=== PATIENT | male | born 1980 | race Caucasian/White ===

== ENCOUNTER 2020-05-09 11:20 | Emergency (ER) | payer OTHER ==
[2020-05-09 11:37] VITALS: RESP 18
[2020-05-09] MEDS ORDERED: ORPHENADRINE 30 MG/ML 2 ML VIAL IM STA (11:50)
[2020-05-09] MEDS ORDERED: KETOROLAC 15 MG/ML 1 ML VIAL IM STA (11:50)
--- NOTE | 2020-05-09 12:15 | XR ---
EXAMINATION TYPE: XR shoulder complete RT DATE OF EXAM: 05/09/2020 CLINICAL HISTORY: pain TECHNIQUE: Three views of the right shoulder are obtained. COMPARISON: None FINDINGS: There is no acute fracture/dislocation evident. The acromioclavicular and glenohumeral luis int spaces appear within normal limits. The visualized ribs are intact and unremarkable. IMPRESSION: 1. There is no acute fracture or dislocation. ICD 10 NO FRACTURE, INITIAL EVALUATION
--- NOTE | 2020-05-09 12:29 | ED ---
Upper Extremity HPI - General Chief Complaint: Extremity Injury, Upper Stated Complaint: shoulder & arm pain/finger numbness Time Seen by Provider: 05/09/20 11:41 Source: patient, RN notes reviewed, old records reviewed Mode of arrival: ambulatory Limitations: no limitations - History of Present Illness Initial Comments: 39-year-old male presents return today with complaints of right-sided shoulder strain. He reports symptoms started today when he woke up. He was golfing yesterday. He complains of paresthesias down the first second third digit. He reports that he feels a dull ache within the shoulder. He reports he does have good range of motion but does cause some increased pain within the shoulder joint and scapula. He denies any fevers or chills, chest pain or shortness of breath. He states he did take some Motrin without any significant relief prior to arrival. - Related Data Home Medications Medication Instructions Recorded Confirmed Atorvastatin Calcium [Lipitor] 10 mg PO HS 05/09/20 05/09/20 Ibuprofen [Motrin Ib] 600 mg PO ONCE PRN 05/09/20 05/09/20 Previous Rx's Medication Instructions Recorded Cyclobenzaprine [Flexeril] 10 mg PO HS #20 tab 05/09/20 dexAMETHasone [Dexamethasone] 0.75 mg PO DAILY #12 tab 05/09/20 Allergies Allergy/AdvReac Type Severity Reaction Status Date / Time No Known Allergies Allergy Verified 05/09/20 12:31 Review of Systems ROS Statement: Those systems with pertinent positive or pertinent negative responses have been documented in the HPI. ROS Other: All systems not noted in ROS Statement are negative. Past Medical History Past Medical History: No Reported History History of Any Multi-Drug Resistant Organisms: None Reported Additional Past Surgical History / Comment(s): neck cyst removed when 6 years old Past Psychological History: No Psychological Hx Reported Smoking Status: Never smoker Past Alcohol Use History: Occasional Past Drug Use History: None Reported General Exam - General Exam Comments Initial Comments: Shoulder x-ray shows no fracture dislocation. Limitations: no limitations General appearance: alert, in no apparent distress Head exam: Present: atraumatic, normocephalic, normal inspection Eye exam: Present: normal appearance, PERRL, EOMI. Absent: scleral icterus, conjunctival injection, periorbital swelling ENT exam: Present: normal exam, mucous membranes moist Neck exam: Present: normal inspection. Absent: tenderness, meningismus, lymphadenopathy Respiratory exam: Present: normal lung sounds bilaterally. Absent: respiratory distress, wheezes, rales, rhonchi, stridor Cardiovascular Exam: Present: regular rate, normal rhythm, normal heart sounds. Absent: systolic murmur, diastolic murmur, rubs, gallop, clicks GI/Abdominal exam: Present: soft Right Shoulder Exam: Present: normal inspection, full ROM, tenderness (Tenderness over R shoulder and supaspinatus. ) Upper Arm exam: Present: normal inspection, full ROM Elbow exam: Present: normal inspection, full ROM Forearm Wrist exam: Present: normal inspection, full ROM Hand Wrist exam: Present: normal inspection, full ROM Neuro motor exam: Present: wrist extension intact, thumb opposition intact, thumb IP flexion intact, thumb adduction intact, fingers 2-5 abduction intact Vascular: Present: normal capillary refill Back exam: Present: normal inspection Neurological exam: Present: alert, oriented X3, CN II-XII intact Psychiatric exam: Present: normal affect, normal mood Skin exam: Present: warm, dry, intact, normal color. Absent: rash Course Vital Signs 05/09/20 11:32 Temperature 98.1 F Pulse Rate 79 Respiratory 18 Rate Blood Pressure 153/88 O2 Sat by Pulse 99 Oximetry Medical Decision Making - Medical Decision Making 39-year-old male presents returns today with right shoulder pain paresthesias on the first second and third digit. Symptoms will reportedly when he woke up this morning but was doing golfing yesterday. This time he has normal sensation and full range of motion of the hand and wrist and shoulder. Assessment tenderness over the supraspinatus muscle. Patient was given IM Toradol and Norflex. Discussed treatment anti-inflammatory medications steroids. Discussed close follow-up with primary care physician and possible orthopedic. Patient x-ray shows no evidence of acute fracture dislocation of the shoulder. Patient is agreeable treatment plan will comply. - Radiology Data Radiology results: report reviewed Shoulder x-rays be negative for any acute process. Disposition Clinical Impression: Shoulder strain, Paresthesia and pain of right extremity Disposition: HOME SELF-CARE Condition: Good Instructions (If sedation given, give patient instructions): Paresthesia (ED), Rotator Cuff Injury (ED) Additional Instructions: Please use medication as discussed. Please follow up with family doctor if symptoms have not improved over the next two days. Please return to the emergency room if your symptoms increase or worsen or for any other concerns. Prescriptions: dexAMETHasone [Dexamethasone] 0.75 mg PO DAILY #12 tab Cyclobenzaprine [Flexeril] 10 mg PO HS #20 tab Is patient prescribed a controlled substance at d/c from ED?: No Referrals: Moses Thompson DO [Primary Care Provider] - 1-2 days Marvin Austin MD [STAFF PHYSICIAN] - 1-2 days Time of Disposition: 12:36
[2020-05-09] MEDS ORDERED: ACET/COD 300 MG/30 MG STARTER PACK 6 TAB BTL PO STA (12:38)
[2020-05-09 13:05] VITALS: BP 128/84; PULSE 68; TEMP 98.4
== END 2020-05-09 13:04 | disposition home or self-care (01) ==
LOC: EC 11:20
DX: S46.911A Strain of unspecified muscle, fascia and tendon at shoulder and upper arm level, right arm, initial encounter (principal); R20.2 Paresthesia of skin; X50.3XXA Overexertion from repetitive movements, initial encounter; Y93.53 Activity, golf
CPT/HCPCS: 73030; 99284; 96372 ×2; J2360; J1885

== ENCOUNTER 2021-12-05 08:19 | Inpatient (IN) | payer OTHER, BC ==
[2021-12-05 09:01] LABS: ALT 30 U/L (4-49); AST 28 U/L (17-59); African American GFR (CKD) >90 (>60 ml/min/1.73 sqM); Alkaline Phosphatase 112 U/L (38-126); Anion Gap 8 mmol/L; Blood Urea Nitrogen 14 mg/dL (9-20); Calcium 8.9 mg/dL (8.4-10.2); Carbon Dioxide 21 mmol/L (22-30); Chloride 109 mmol/L (98-107); Glucose 98 mg/dL (74-99); Magnesium 1.9 mg/dL (1.6-2.3); Non-African American GFR(CKD) >90 (>60 ml/min/1.73 sqM); Potassium 4.2 mmol/L (3.5-5.1); Sodium 138 mmol/L (137-145); Total Bilirubin 0.6 mg/dL (0.2-1.3); Total Protein 7.6 g/dL (6.3-8.2)
--- NOTE | 2021-12-05 09:03 | ED ---
General Adult HPI - General Chief complaint: Shortness of Breath Stated complaint: SOB Time Seen by Provider: 12/05/21 08:29 Source: patient Mode of arrival: ambulatory Limitations: no limitations - History of Present Illness Initial comments: 41-year-old male presents emergency Department with reported shortness of breath. States that it's been going on progressively since September. He describes it as an exertional dyspnea. Cannot go up a flight of stairs without stopping to catch his breath and cough. States the cough is minimally productive with only clear sputum. He has been seen by his primary care doctor. In September they placed him on an antibiotic as he was having high white blood cell counts. He reportedly got a chest x-ray. 3 weeks ago he was sent down to the [facility] in [place] have an echo. Recently just got his results and they were normal. He denies previous history of cardiac disease. No peripheral edema. Denies calf pain. No recent travel or surgeries. 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 Denies family history of DVT or PE. No history of asthma or COPD. Patient is a nonsmoker. He denies associated chest pain. He did injure his right arm playing golf and had a large hematoma however he states he was never evaluated for it. He denies any abdominal pain. No fevers. No other alleviating, precipitating or modifying factors - Related Data Home Medications Medication Instructions Recorded Confirmed Atorvastatin Calcium [Lipitor] 10 mg PO HS 05/09/20 12/05/21 Allergies Allergy/AdvReac Type Severity Reaction Status Date / Time No Known Allergies Allergy Verified 12/05/21 10:24 Review of Systems ROS Statement: Those systems with pertinent positive or pertinent negative responses have been documented in the HPI. ROS Other: All systems not noted in ROS Statement are negative. Past Medical History Past Medical History: No Reported History History of Any Multi-Drug Resistant Organisms: None Reported Additional Past Surgical History / Comment(s): neck cyst removed when 6 years old Past Psychological History: No Psychological Hx Reported Smoking Status: Never smoker Past Alcohol Use History: Occasional Past Drug Use History: None Reported - Past Family History Father Family Medical History: COPD, Diabetes Mellitus, Hyperlipidemia, Hypertension Additional Family Medical History / Comment(s): Neuropathy, depression. Mother Family Medical History: COPD, Thyroid Disorder Additional Family Medical History / Comment(s): Mother is a smoker. General Exam Limitations: no limitations Course Vital Signs 12/05/21 12/05/21 12/05/21 08:21 09:30 12:02 Temperature 98.2 F Pulse Rate 94 92 75 Respiratory 26 H 20 Rate Blood Pressure 160/86 140/96 O2 Sat by Pulse 94 L 90 L Oximetry 12/05/21 15:00 Temperature Pulse Rate 84 Respiratory 16 Rate Blood Pressure 129/87 O2 Sat by Pulse 91 L Oximetry EKG Findings - EKG Comments: EKG Findings:: EKG demonstrates a sinus rhythm with a rate of 92. NE interval 164. QRS 98. QTC of 384. No acute ST segment elevations or depressions. There is baseline artifact. Medical Decision Making - Medical Decision Making Upon arrival patient is placed into room 8. A thorough history and physical exam is performed. Patient does have oxygen saturation of 86% upon arrival and therefore placed on 4 L of oxygen. IV is established laboratory studies are conducted. Patient is sent over for a CT of his chest which demonstrates significant groundglass opacities. No pneumothorax, no PE. Recommended admission for pulmonology consultation. Gave the patient dose of steroids and a breathing treatment. Spoke with Dr. bryant who agreed to admit the patient - Lab Data Result diagrams: 12/05/21 08:42 12/05/21 08:42 Lab Results 12/05/21 12/05/21 12/05/21 Range/Units 08:42 08:42 08:42 WBC 9.8 (3.8-10.6) k/uL RBC 5.73 (4.30-5.90) m/uL Hgb 17.7 H (13.0-17.5) gm/dL Hct 50.1 (39.0-53.0) % MCV 87.4 (80.0-100.0) fL MCH 30.9 (25.0-35.0) pg MCHC 35.3 (31.0-37.0) g/dL RDW 13.3 (11.5-15.5) % Plt Count 155 (150-450) k/uL MPV 10.1 Neutrophils % 72 % Lymphocytes % 16 % Monocytes % 6 % Eosinophils % 4 % Basophils % 1 % Neutrophils # 7.1 (1.3-7.7) k/uL Lymphocytes # 1.6 (1.0-4.8) k/uL Monocytes # 0.6 (0-1.0) k/uL Eosinophils # 0.4 (0-0.7) k/uL Basophils # 0.1 (0-0.2) k/uL PT 10.7 (9.0-12.0) sec INR 1.0 (<1.2) APTT 22.8 (22.0-30.0) sec D-Dimer <0.17 (<0.60) mg/L FEU Sodium 138 (137-145) mmol/L Potassium 4.2 (3.5-5.1) mmol/L Chloride 109 H (98-107) mmol/L Carbon Dioxide 21 L (22-30) mmol/L Anion Gap 8 mmol/L BUN 14 (9-20) mg/dL Creatinine 0.90 (0.66-1.25) mg/dL Est GFR (CKD-EPI)AfAm >90 (>60 ml/min/1.73 sqM) Est GFR (CKD-EPI)NonAf >90 (>60 ml/min/1.73 sqM) Glucose 98 (74-99) mg/dL Plasma Lactic Acid Tong (0.7-2.0) mmol/L Calcium 8.9 (8.4-10.2) mg/dL Magnesium 1.9 (1.6-2.3) mg/dL Total Bilirubin 0.6 (0.2-1.3) mg/dL AST 28 (17-59) U/L ALT 30 (4-49) U/L Alkaline Phosphatase 112 (38-126) U/L Troponin I (0.000-0.034) ng/mL NT-Pro-B Natriuret Pep pg/mL Total Protein 7.6 (6.3-8.2) g/dL Albumin 4.0 (3.5-5.0) g/dL Coronavirus (PCR) (Not Detectd) Influenza Type A RNA (Not Detectd) Influenza Type B (PCR) (Not Detectd) 12/05/21 12/05/21 12/05/21 Range/Units 08:42 08:42 08:43 WBC (3.8-10.6) k/uL RBC (4.30-5.90) m/uL Hgb (13.0-17.5) gm/dL Hct (39.0-53.0) % MCV (80.0-100.0) fL MCH (25.0-35.0) pg MCHC (31.0-37.0) g/dL RDW (11.5-15.5) % Plt Count (150-450) k/uL MPV Neutrophils % % Lymphocytes % % Monocytes % % Eosinophils % % Basophils % % Neutrophils # (1.3-7.7) k/uL Lymphocytes # (1.0-4.8) k/uL Monocytes # (0-1.0) k/uL Eosinophils # (0-0.7) k/uL Basophils # (0-0.2) k/uL PT (9.0-12.0) sec INR (<1.2) APTT (22.0-30.0) sec D-Dimer (<0.60) mg/L FEU Sodium (137-145) mmol/L Potassium (3.5-5.1) mmol/L Chloride (98-107) mmol/L Carbon Dioxide (22-30) mmol/L Anion Gap mmol/L BUN (9-20) mg/dL Creatinine (0.66-1.25) mg/dL Est GFR (CKD-EPI)AfAm (>60 ml/min/1.73 sqM) Est GFR (CKD-EPI)NonAf (>60 ml/min/1.73 sqM) Glucose (74-99) mg/dL Plasma Lactic Acid Tong 1.2 (0.7-2.0) mmol/L Calcium (8.4-10.2) mg/dL Magnesium (1.6-2.3) mg/dL Total Bilirubin (0.2-1.3) mg/dL AST (17-59) U/L ALT (4-49) U/L Alkaline Phosphatase (38-126) U/L Troponin I <0.012 (0.000-0.034) ng/mL NT-Pro-B Natriuret Pep 37 pg/mL Total Protein (6.3-8.2) g/dL Albumin (3.5-5.0) g/dL Coronavirus (PCR) (Not Detectd) Influenza Type A RNA (Not Detectd) Influenza Type B (PCR) (Not Detectd) 12/05/21 12/05/21 Range/Units 08:43 08:43 WBC (3.8-10.6) k/uL RBC (4.30-5.90) m/uL Hgb (13.0-17.5) gm/dL Hct (39.0-53.0) % MCV (80.0-100.0) fL MCH (25.0-35.0) pg MCHC (31.0-37.0) g/dL RDW (11.5-15.5) % Plt Count (150-450) k/uL MPV Neutrophils % % Lymphocytes % % Monocytes % % Eosinophils % % Basophils % % Neutrophils # (1.3-7.7) k/uL Lymphocytes # (1.0-4.8) k/uL Monocytes # (0-1.0) k/uL Eosinophils # (0-0.7) k/uL Basophils # (0-0.2) k/uL PT (9.0-12.0) sec INR (<1.2) APTT (22.0-30.0) sec D-Dimer (<0.60) mg/L FEU Sodium (137-145) mmol/L Potassium (3.5-5.1) mmol/L Chloride (98-107) mmol/L Carbon Dioxide (22-30) mmol/L Anion Gap mmol/L BUN (9-20) mg/dL Creatinine (0.66-1.25) mg/dL Est GFR (CKD-EPI)AfAm (>60 ml/min/1.73 sqM) Est GFR (CKD-EPI)NonAf (>60 ml/min/1.73 sqM) Glucose (74-99) mg/dL Plasma Lactic Acid Tong (0.7-2.0) mmol/L Calcium (8.4-10.2) mg/dL Magnesium (1.6-2.3) mg/dL Total Bilirubin (0.2-1.3) mg/dL AST (17-59) U/L ALT (4-49) U/L Alkaline Phosphatase (38-126) U/L Troponin I (0.000-0.034) ng/mL NT-Pro-B Natriuret Pep pg/mL Total Protein (6.3-8.2) g/dL Albumin (3.5-5.0) g/dL Coronavirus (PCR) Not Detected (Not Detectd) Influenza Type A RNA Not Detected (Not Detectd) Influenza Type B (PCR) Not Detected (Not Detectd) Disposition Clinical Impression: Hypoxia, Acute respiratory failure Disposition: ADMITTED IP TO THIS HOSP Condition: Stable Is patient prescribed a controlled substance at d/c from ED?: No Decision to Admit Reason: Admit from EC Decision Date: 12/05/21 Decision Time: 11:36
[2021-12-05 09:14] LABS: Partial Thromboplastin Time 22.8 sec (22.0-30.0); Prothrombin Time 10.7 sec (9.0-12.0)
[2021-12-05 09:26] LABS: Basophils # (A) 0.1 k/uL (0-0.2); Basophils % (A) 1 %; Eosinophils # (A) 0.4 k/uL (0-0.7); Eosinophils % (A) 4 %; HCT 50.1 % (39.0-53.0); HGB 17.7 gm/dL (13.0-17.5); Lymphocytes # (A) 1.6 k/uL (1.0-4.8); Lymphocytes % (A) 16 %; MCH 30.9 pg (25.0-35.0); MCHC 35.3 g/dL (31.0-37.0); MCV 87.4 fL (80.0-100.0); Mean Platelet Volume 10.1; Monocytes # (A) 0.6 k/uL (0-1.0); Monocytes % (A) 6 %; Neutrophils # (A) 7.1 k/uL (1.3-7.7); Neutrophils % (A) 72 %; Platelet Count 155 k/uL (150-450); RBC 5.73 m/uL (4.30-5.90); RDW 13.3 % (11.5-15.5); WBC 9.8 k/uL (3.8-10.6)
--- NOTE | 2021-12-05 10:15 | CT ---
EXAMINATION TYPE: CT chest angio for PE DATE OF EXAM: 12/05/2021 COMPARISON: NONE HISTORY: Shortness of breath CT DLP: 1038.3 mGy.cm. Automated Exposure Control for Dose Reduction was Utilized. TECHNIQUE AND CONTRAST: CTA scan of the thorax is performed with IV Contrast, patient injected with 100 mL of Isovue 370, pul [facility] angiogram protocol. MIP Images are created on an independent workstation and reviewed. FINDINGS: Suboptimal enhancement of the pulmonary arteries. No definite filling defect within the pulmonary jennifer nk, main pulmonary arteries, lobar and segmental branches to suggest pulmonary embolism. Subsegmental branches are suboptimally assessed. The pulmonary trunk measures 2.9 cm. No gross cardiomegaly. No p ericardial effusion. Scattered subcentimeter bilateral hilar and mediastinal lymph nodes. No greater than 1 cm lymph node in the chest. Extensive bilateral groundglass opacities with mosaic perfusion pattern, relatively sparing the lung bases. 7 mm nodule is seen in the right lower lobe superior segment with a tiny calcified granuloma i n the left lower lobe. Recommend follow-up CT scan in 3 months for reassessment. Patent central airwa ys. No pleural effusion. Grossly unremarkable upper abdomen. No gross aggressive bone lesion. IMPRESSION: Suboptimal CT scan as described above. No major or central pulmonary embolism. Small peripheral pulmo nary embolism can't be excluded. Extensive bilateral groundglass opacities with mosaic perfusion pattern as described above, nonspecif ic and could be related to chronic small airway disease or chronic thromboembolic pulmonary hypertens ion. Other lung disease like hypersensitivity pneumonitis cannot be excluded. Recommend clinical brandee elation and further workup. Further pulmonology consultation can be considered. Other findings as ludwig cribed above.
[2021-12-05] MEDS ORDERED: IPRATROPIUM-ALBUTEROL 3 ML NEB INHALATION STA (11:21)
[2021-12-05] MEDS ORDERED: methylPREDNISolone SOD SUCCI 125 MG/2 ML VIAL IV STA (11:21)
[2021-12-05] MEDS ORDERED: NALOXONE 0.4 MG/ML 1 ML VIAL IV PRN (11:36)
--- NOTE | 2021-12-05 11:51 | P.HPIM ---
History of Present Illness This is a pleasant 41 years old male with past medical history of hyperlipidemia and obesity. Presents with ongoing dyspnea since end of last August for the last 3-4 months, mainly with exertion like when he is going upstairs associated with some cough and clear phlegm which is worse over the last month and hypoxia with saturation of oxygen was 86% on room air on admission, currently 94% on 4 L oxygen. [facility] and they ordered some tests for him which came back basically negative as per patient and he was scheduled for pulmonary function test but he decided to come to emergency room. Past chest pain or abdominal pain or vomiting. No urinary complaints, no headache, dizziness or weakness or numbness. He denies smoking or illicit drugs. He drinks alcohol socially. He is mildly tachypneic 20-22 breaths per minute. Labs including CBC, BMP and liver enzymes were unremarkable. Hemoglobin is el evated at 17.7 D-dimer is negative less than 0.17. Troponin is negative less than 0.012. Coronavirus and influenza virus is negative and not detected. CTA of the chest with contrast: No pulmonary embolism, no lymphadenopathy. But has extensive bilateral groundglass opacities with hormone psych perfusion pattern with right lower lobe 7 mm lung nodules with recommendation for follow- up computed tomography scan in 3 months Review of Systems CONSTITUTIONAL: No fever, no malaise, no fatigue. HEENT: No recent visual problems or hearing problems. Denied any sore throat. CARDIOVASCULAR: No orthopnea, PND, no palpitations, no syncope. PULMONARY: No chest wall tenderness, no cough, no hemoptysis. GASTROINTESTINAL: No diarrhea, no nausea, no vomiting, no abdominal pain. Normoactive bowel sounds. NEUROLOGICAL: No headaches, no weakness, no numbness. HEMATOLOGICAL: Denies any bleeding or petechiae. GENITOURINARY: Denies any burning micturition, frequency, or urgency. MUSCULOSKELETAL/RHEUMATOLOGICAL: Denies any joint pain, swelling, or any muscle pain. ENDOCRINE: Denies any polyuria or polydipsia. Past Medical History Past Medical History: No Reported History History of Any Multi-Drug Resistant Organisms: None Reported Additional Past Surgical History / Comment(s): neck cyst removed when 6 years old Past Psychological History: No Psychological Hx Reported Smoking Status: Never smoker Past Alcohol Use History: Occasional Past Drug Use History: None Reported Medications and Allergies Home Medications Medication Instructions Recorded Confirmed Type Atorvastatin Calcium [Lipitor] 10 mg PO HS 05/09/20 12/05/21 History Allergies Allergy/AdvReac Type Severity Reaction Status Date / Time No Known Allergies Allergy Verified 12/05/21 10:24 Physical Exam Vitals: Vital Signs Temp Pulse Resp BP Pulse Ox 12/05/21 09:30 92 20 140/96 90 L 12/05/21 08:21 98.2 F 94 26 H 160/86 94 L Intake and Output 12/04/21 12/05/21 12/05/21 22:59 06:59 14:59 Other: Weight 134.717 kg - GENERAL: The patient is alert and oriented x3, not in any acute distress. Obese HEENT: Pupils are round and equally reacting to light. EOMI. No scleral icterus. No conjunctival pallor. Normocephalic, atraumatic. No pharyngeal erythema. No thyromegaly. CARDIOVASCULAR: S1 and S2 present. No murmurs, rubs, or gallops. PULMONARY: Chest is clear to auscultation, no wheezing or crackles. ABDOMEN: Soft, nontender, nondistended, normoactive bowel sounds. No palpable organomegaly. MUSCULOSKELETAL: No joint swelling or deformity. EXTREMITIES: No cyanosis, clubbing, or pedal edema. NEUROLOGICAL: Gross neurological examination did not reveal any focal deficits. SKIN: No rashes. No petechiae Results CBC & Chem 7: 12/05/21 08:42 12/05/21 08:42 Labs: Abnormal Lab Results - Last 24 Hours (Table) 12/05/21 12/05/21 Range/Units 08:42 08:42 Hgb 17.7 H (13.0-17.5) gm/dL Chloride 109 H (98-107) mmol/L Carbon Dioxide 21 L (22-30) mmol/L Assessment and Plan Assessment: Worsening dyspnea with acute hypoxia over the last 3-4 months, Secondary erythrocytosis, mostly due to his ongoing hypoxia right lower lobe 7 mm lung nodules Hyperlipidemia Obesity with BMI of 37.1 Plan: A pleasant 39 years old male who presents with bilateral groundglass opacities with hypoxia Continue with oxygen therapy Pulmonary consult we will order a TSH, proBNP and procalcitonin Patent recommended to repeat CAT scan of the chest in 3 months for his lung nodule Labs and medication were reviewed.. Continue same treatment. Continue with symptomatic treatment. Resume home medication. Monitor lytes and vitals. DVT and GI prophylaxis. Further recommendations depends on the clinical course of the patient DVT prophylaxis: Subcutaneous heparin GI Prophylaxis: Pepcid
--- NOTE | 2021-12-05 16:09 | P.CNPUL ---
History of Present Illness Consult date: 12/05/21 Requesting physician: Ankur Wan Reason for consult: dyspnea, pneumonia Chief complaint: Shortness of breath on exertion History of present illness: This is a 41-year-old white male with no previous significant past medical history. No previous history of asthma, no previous history of COPD, no previous history of pneumonia, no previous cardiac history, patient is known to have obesity and dyslipidemia. Since April of last year until now, patient had recurrent episodes of cough, shortness of breath, and on few occasions he was treated with antibiotics and steroids. Since September till now, patient has been complaining of dyspnea on exertion and associated with cough, cough is prod uctive with clear phlegm. No fever no chills no hemoptysis no chest pain. Upon arrival to the ER, his O2 saturation on room air was 86%. His O2 saturation came up to 94% on [address] of the chest was done to rule out pulmonary embolism, however it showed diffuse groundglass opacities. Has a mosaicperfusion pattern, and there was no evidence of thromboembolic disease. There was also evidence of 7 mm nodule in the right lower lobe superior segment, noncalcified. Again there was no evidence of pulmonary embolism. Considering the patient's O2 saturation, patient was admitted and this consult was initiated. I reviewed the CT angiogram of the chest, and I have recommended workup for hypersensitivity pneumonitis, and I have recommended sed rate, and angiotensin-converting enzyme level, I also recommended CAM And p-ANCA as well as a hypersensitivity panel. In the meantime patient will be treated with Solu-Medrol, and have a repeat chest x-ray in the next couple of days or even consider repeat CT of the chest and decide whether the patient will need bronchoscopy and transbronchial biopsy. Review of Systems CONSTITUTIONAL: No fever, no malaise, no fatigue. No weight loss. HEENT: Negative. CARDIOVASCULAR: Negative. PULMONARY: As noted in HPI mostly shortness of breath on exertion, and occasional cough. Associated with exertion. GASTROINTESTINAL: Negative. Denies any symptoms of nausea vomiting or GERD. NEUROLOGICAL: Negative. HEMATOLOGICAL: Negative. GENITOURINARY: Negative.. MUSCULOSKELETAL/RHEUMATOLOGICAL: Negative. ENDOCRINE: Negative. Past Medical History Past Medical History: Hyperlipidemia, Osteoarthritis (OA) Additional Past Medical History / Comment(s): Cervical pinched nerve which has caused r index finger numbness, bronchitis often as a child only, arthritis bilateral knees. History of Any Multi-Drug Resistant Organisms: None Reported Additional Past Surgical History / Comment(s): neck cyst removed when 6 years old Past Anesthesia/Blood Transfusion Reactions: No Reported Reaction Smoking Status: Never smoker - Past Family History Father Family Medical History: COPD, Diabetes Mellitus, Hyperlipidemia, Hypertension Additional Family Medical History / Comment(s): Neuropathy, depression. Mother Family Medical History: COPD, Thyroid Disorder Additional Family Medical History / Comment(s): Mother is a smoker. Medications and Allergies Home Medications Medication Instructions Recorded Confirmed Type Atorvastatin Calcium [Lipitor] 10 mg PO HS 05/09/20 12/05/21 History Allergies Allergy/AdvReac Type Severity Reaction Status Date / Time No Known Allergies Allergy Verified 12/05/21 10:24 Physical Exam Vitals: Vital Signs Temp Pulse Resp BP Pulse Ox 12/05/21 15:00 84 16 129/87 91 L 12/05/21 12:02 75 12/05/21 09:30 92 20 140/96 90 L 12/05/21 08:21 98.2 F 94 26 H 160/86 94 L Intake and Output 12/05/21 12/05/21 12/05/21 06:59 14:59 22:59 Other: Weight 134.717 kg 134.717 kg Physical Exam: Revealed 41-year-old white male pleasant, in no distress. Presently on 4 L nasal cannula. Head: Atraumatic, normocephalic. HEENT:[Neck is supple.] [No neck masses.] [No thyromegaly.] [No JVD.] Chest: [Clear throughout, no crackles, no rhonchi, no wheezes.] Symmetrical chest expansion. Cardiac Exam: [Normal S1 and S2, no S3 gallop, no murmur.] Abdomen: [Soft, nontender, no megaly, no rebound, no guarding, normal bowel sounds.] Extremities: [No clubbing, no edema, no cyanosis.] Neurological Exam: [No focal neurologic deficit.] Alert oriented 3. Psychiatric: Normal mood, affect and normal mental status examination. Skin: No rashes. Results - Laboratory Findings CBC and BMP: 12/05/21 08:42 12/05/21 08:42 PT/INR, D-dimer PT 10.7 sec (9.0-12.0) 12/05/21 08:42 INR 1.0 (<1.2) 12/05/21 08:42 D-Dimer <0.17 mg/L FEU (<0.60) 12/05/21 08:42 Abnormal lab findings: Abnormal Labs 12/05/21 12/05/21 08:42 08:42 Hgb 17.7 H Chloride 109 H Carbon Dioxide 21 L - Diagnostic Findings Chest x-ray: image reviewed CT scan - chest: image reviewed (As noted in HPI) Assessment and Plan Assessment: Impression: Diffuse pneumonitis, not appreciated on the chest x-ray as much as appreciated on the CT of the chest. Possible hypersensitivity pneumonitis Discharge on exertion secondary to above. Morbid obesity with BMI of 37.1 Right lower lobe nodule will need further follow-up and repeat CT of the chest in 6 months on outpatient basis. Recommendation: Continue present meds including methylprednisolone Continue updrafts Continue oxygen and titrate accordingly Diagnostic workup including hypersensitivity panel, sed rate, angiotensin-c onverting enzyme level, REBA, c-ANCA, and p-ANCA were ordered. If no improvement in the next few days and no specific diagnostic findings from the above, will definitely consider bronchoscopy and transbronchial biopsy on this patient. We'll continue to follow Time with Patient: Greater than 30
[2021-12-05] MEDS: methylPREDNISolone SOD SUCCI 125 MG/2 ML VIAL IV SCH (17:38)
[2021-12-05] MEDS ORDERED: ACETAMINOPHEN TAB 325 MG TAB PO PRN (17:45)
[2021-12-05] MEDS ORDERED: ONDANSETRON 4 MG/2 ML VIAL IVP PRN (17:45)
[2021-12-05 20:12] LABS: Glucose,Whole Blood 104 mg/dL (75-99)
[2021-12-05] MEDS: IPRATROPIUM-ALBUTEROL 3 ML NEB INHALATION SCH (20:28)
[2021-12-05] MEDS: FAMOTIDINE 20 MG/2 ML VIAL IV SCH (21:05)
[2021-12-05] MEDS: ATORVASTATIN 10 MG TAB PO SCH (21:05)
[2021-12-05] MEDS: HEPARIN SODIUM,PORCINE/PF 5,000 UNIT/0.5 ML SYRINGE SQ SCH (21:05)
--- NOTE | 2021-12-05 22:15 | XR ---
EXAMINATION TYPE: XR chest 1V portable DATE OF EXAM: 12/05/2021 CLINICAL HISTORY: Difficulty breathing progress study. TECHNIQUE: AP portable COMPARISON: Chest x-ray from one day earlier FINDINGS: Lungs are clear. Pleural spaces are negative. Cardiomediastinal silhouette is unremarkable . No acute bone or soft tissue findings. IMPRESSION: No acute radiographic process.
[2021-12-06] MEDS: methylPREDNISolone SOD SUCCI 125 MG/2 ML VIAL IV SCH ×5 (00:26→23:52)
[2021-12-06 06:56] LABS: Glucose,Whole Blood 143 mg/dL (75-99)
[2021-12-06] MEDS: IPRATROPIUM-ALBUTEROL 3 ML NEB INHALATION SCH ×4 (07:55→19:47)
[2021-12-06 09:04] LABS: Basophils # (A) 0.01 X 10*3/uL (0.00-0.10); Basophils % (A) 0.1 %; Eosinophils # (A) 0 X 10*3/uL (0.04-0.35); Eosinophils % (A) 0 %; HGB 17.6 g/dL (13.0-17.0); Immature Grans, Automated 0.4 %; Lymphocytes # (A) 0.75 X 10*3/uL (0.90-5.00); Lymphocytes % (A) 7.3 %; MCH 29.3 pg (27.0-32.0); MCHC 33.8 g/dL (32.0-37.0); MCV 86.5 fL (80.0-97.0); Mean Platelet Volume 12.7 fL (9.5-12.2); Monocytes # (A) 0.08 X 10*3/uL (0.20-1.00); Monocytes % (A) 0.8 %; NRBC Per 100 WBC 0 /100 WBCS (0.0-0.0); Neutrophils # (A) 9.37 X 10*3/uL (1.80-7.70); Neutrophils % (A) 91.4 %; Platelet Count 185 X 10*3/uL (140-440); RBC 6.01 X 10*6/uL (4.40-5.60); RDW 12.9 % (11.5-14.5); WBC 10.25 X 10*3/uL (4.50-10.00)
[2021-12-06 09:14] LABS: African American GFR (CKD) 113.5 (60.0-200.0); BUN/Creat Ratio 17.21 Ratio (12.00-20.00); Blood Urea Nitrogen 16.4 mg/dL (9.0-27.0); Carbon Dioxide 20.5 mmol/L (20.0-27.5); Potassium 4.8 mmol/L (3.5-5.5)
--- NOTE | 2021-12-06 09:15 | P.PN ---
Subjective Progress Note Date: 12/06/21 Principal diagnosis: Pneumonitis/alveolitis of unclear etiology This is a 41-year-old white male with no previous significant past medical history. No previous history of asthma, no previous history of COPD, no previous history of pneumonia, no previous cardiac history, patient is known to have obesity and dyslipidemia. Since April of last year until now, patient had recurrent episodes of cough, shortness of breath, and on few occasions he was treated with antibiotics and steroids. Since September till now, patient has been complaining of dyspnea on exertion and associated with cough, cough is productive with clear phlegm. No fever no chills no hemoptysis no chest pain. Upon arrival to the ER, his O2 saturation on room air was 86%. His O2 saturation came up to 94% on [address] of the chest was done to rule out pulmonary embolism, however it showed diffuse groundglass opacities. Has a mosaicperfusion pattern, and there was no evidence of thromboembolic disease. There was also evidence of 7 mm nodule in the right lower lobe superior segment, noncalcified. Again there was no evidence of pulmonary embolism. Considering the patient's O2 saturation, patient was admitted and this consult was initiated. I reviewed the CT angiogram of the chest, and I have recommended workup for hypersensitivity pneumonitis, and I have recommended sed rate, and angiotensin-converting enzyme level, I also recommended CAM And p-ANCA as well as a hypersensitivity panel. In the meantime patient will be treated with Solu- Medrol, and have a repeat chest x-ray in the next couple of days or even consider repeat CT of the chest and decide whether the patient will need bronchoscopy and transbronchial biopsy. The patient is seen today 12/06/2021 in follow-up on the regular medical floor. He is currently sitting up in bed. Awake and alert in no acute distress. He continues with a dry nonproductive cough. He is maintaining O2 saturations in the low 90s on 3 L/m per nasal cannula. He denies any worsening shortness of breath, cough or congestion. No fever or chills. He's been afebrile. Hemodynamically stable. Blood sugar 143. Hypersensitivity panel and other labs are still pending. Chest x-ray from last evening revealed no acute process. He is continued on DuoNeb inhalations, IV Solu-Medrol, heparin for DVT prophylaxis. Pepcid for GI prophylaxis. Objective - Vital Signs Vital signs: Vital Signs Temp 98 F 12/06/21 08:00 Pulse 87 12/06/21 08:00 Resp 18 12/06/21 08:00 BP 127/76 12/06/21 08:00 Pulse Ox 90 L 12/06/21 08:00 Intake & Output 12/05/21 12/06/21 12/06/21 18:59 06:59 18:59 Intake Total 960 Balance 960 Weight 134.717 kg Intake: Oral 960 Other: Voiding Method Toilet # Voids 2 - Exam GENERAL EXAM: Alert, very pleasant, male patient on 3 L nasal cannula, comfortable in no apparent distress. HEAD: Normocephalic. EYES: Normal reaction of pupils, equal size. NOSE: Clear with pink turbinates. THROAT: No erythema or exudates. NECK: No masses, no JVD. CHEST: No chest wall deformity. LUNGS: Equal air entry with no crackles, wheeze, rhonchi or dullness. CVS: S1 and S2 normal with no audible murmur, regular rhythm. ABDOMEN: No hepatosplenomegaly, normal bowel sounds, no guarding or rigidity. SPINE: No scoliosis or deformity SKIN: No rashes CENTRAL NERVOUS SYSTEM: No focal deficits, tone is normal in all 4 extremities. EXTREMITIES: There is no peripheral edema. No clubbing, no cyanosis. Peripheral pulses are intact. - Labs CBC & Chem 7: 12/05/21 08:42 12/05/21 08:42 Labs: Abnormal Lab Results - Last 24 Hours (Table) 12/05/21 12/05/21 12/05/21 Range/Units 08:42 08:42 20:09 Hgb 17.7 H (13.0-17.5) gm/dL Chloride 109 H (98-107) mmol/L Carbon Dioxide 21 L (22-30) mmol/L POC Glucose (mg/dL) 104 H (75-99) mg/dL 12/06/21 Range/Units 06:55 Hgb (13.0-17.5) gm/dL Chloride (98-107) mmol/L Carbon Dioxide (22-30) mmol/L POC Glucose (mg/dL) 143 H (75-99) mg/dL Assessment and Plan Assessment: 1 acute hypoxemic respiratory failure secondary to diffuse pneumonitis, not appreciated on the chest x-ray as much as appreciated on the CT of the chest. The patient is a nonsmoker. Denied any vaping history. Denies any chemical or allergen exposures that he can recall. He has had a humidifier near his bed each night since June 2021. May consider 'humidifier lung' within the differential however the patient has not had typical fevers. 2 Possible hypersensitivity pneumonitis 3 Dyspnea on exertion secondary to above 4 Morbid obesity with BMI of 37.1 5 Right lower lobe nodule will need further follow-up and repeat CT of the chest in 6 months on outpatient basis 6 Hyperlipidemia Plan: Patient was seen and evaluated Chest x-ray reviewed Continues to require oxygen at 3 L nasal cannula Hypersensitivity panel, sed rate, angiotensin-converting enzyme level, REBA, c- ANCA, and p-ANCA still pending Continue IV Solu-Medrol 60 mg every 6 hours May consider bronchoscopy with transbronchial biopsy if no improvement We will continue to follow and make further recommendations based on his clinical status I have personally seen and examined the patient, performed the documentation and the assessment and plan as written. Number of minutes spent on the visit: 10.
[2021-12-06] MEDS: HEPARIN SODIUM,PORCINE/PF 5,000 UNIT/0.5 ML SYRINGE SQ SCH ×2 (09:21→20:52)
[2021-12-06] MEDS: FAMOTIDINE 20 MG/2 ML VIAL IV SCH (09:22)
[2021-12-06 11:28] LABS: Glucose,Whole Blood 133 mg/dL (75-99)
[2021-12-06 14:46] LABS: C-ANCA <1:20 Titer (<1:20)
[2021-12-06 16:39] LABS: Glucose,Whole Blood 198 mg/dL (75-99)
--- NOTE | 2021-12-06 16:54 | P.PN ---
Subjective This is a pleasant 41 years old male with past medical history of hyperlipidemia and obesity. Presents with ongoing dyspnea since end of last August for the last 3-4 months, mainly with exertion like when he is going upstairs associated with some cough and clear phlegm which is worse over the last month and hypoxia with saturation of oxygen was 86% on room air on admission, currently 94% on 4 L oxygen. He [facility] and they ordered some tests for him which came back basically negative as per patient and he was scheduled for pulmonary function test but he decided to come to emergency room. Past chest pain or abdominal pain or vomiting. No urinary complaints, no headache, dizziness or weakness or numbness. He denies smoking or illicit drugs. He drinks alcohol socially. He is mildly tachypneic 20-22 breaths per minute. Labs including CBC, BMP and liver enzymes were unremarkable. Hemoglobin is elevated at 17.7 D-dimer is negative less than 0.17. Troponin is negative less than 0.012. Coronavirus and influenza virus is negative and not detected. CTA of the chest with contrast: No pulmonary embolism, no lymphadenopathy. But has extensive bilateral groundglass opacities with hormone psych perfusion pattern with right lower lobe 7 mm lung nodules with recommendation for follow- up computed tomography scan in 3 months 12/06/2021 Patient breathing is improving. His oxygen requirement down to 3 L/m, is fully awake comfortable and pleasant and satisfied with the progress he is making. No new complaint. 80s, p-ANCA and cANCA are all negative. ProBNP is negative. Port auscultatory, TSH, hypersensitivity panel are all pending. Patient remains on Solu-Medrol 40 mg Objective - Vital Signs Vital signs: Vital Signs Temp 97.5 F L 12/06/21 14:18 Pulse 103 H 12/06/21 15:44 Resp 18 12/06/21 15:44 BP 144/68 12/06/21 14:18 Pulse Ox 97 12/06/21 14:18 Intake & Output 12/05/21 12/06/21 12/06/21 18:59 06:59 18:59 Intake Total 960 Balance 960 Weight 134.717 kg Intake: Oral 960 Other: Voiding Method Toilet Toilet # Voids 2 - Exam GENERAL: The patient is alert and oriented x3, not in any acute distress. Well developed, well nourished. HEENT: Pupils are round and equally reacting to light. EOMI. No scleral icterus. No conjunctival pallor. Normocephalic, atraumatic. No pharyngeal erythema. No thyromegaly. CARDIOVASCULAR: S1 and S2 present. No murmurs, rubs, or gallops. PULMONARY: Chest is clear to auscultation, no wheezing or crackles. ABDOMEN: Soft, nontender, nondistended, normoactive bowel sounds. No palpable organomegaly. MUSCULOSKELETAL: No joint swelling or deformity. EXTREMITIES: No cyanosis, clubbing, or pedal edema. NEUROLOGICAL: Gross neurological examination did not reveal any focal deficits. SKIN: No rashes. no petechiae. - Labs CBC & Chem 7: 12/06/21 05:51 12/06/21 05:51 Labs: Abnormal Lab Results - Last 24 Hours (Table) 12/05/21 12/06/21 12/06/21 Range/Units 20:09 05:51 05:51 WBC 10.25 H (4.50-10.00) X 10*3/uL RBC 6.01 H (4.40-5.60) X 10*6/uL Hgb 17.6 H (13.0-17.0) g/dL Hct 52.0 H (39.6-50.0) % MPV 12.7 H (9.5-12.2) fL Neutrophils # 9.37 H (1.80-7.70) X 10*3/uL Lymphocytes # 0.75 L (0.90-5.00) X 10*3/uL Monocytes # 0.08 L (0.20-1.00) X 10*3/uL Eosinophils # 0 L (0.04-0.35) X 10*3/uL Glucose 125 H (70-110) mg/dL POC Glucose (mg/dL) 104 H (75-99) mg/dL 12/06/21 12/06/21 12/06/21 Range/Units 06:55 11:26 16:38 WBC (4.50-10.00) X 10*3/uL RBC (4.40-5.60) X 10*6/uL Hgb (13.0-17.0) g/dL Hct (39.6-50.0) % MPV (9.5-12.2) fL Neutrophils # (1.80-7.70) X 10*3/uL Lymphocytes # (0.90-5.00) X 10*3/uL Monocytes # (0.20-1.00) X 10*3/uL Eosinophils # (0.04-0.35) X 10*3/uL Glucose (70-110) mg/dL POC Glucose (mg/dL) 143 H 133 H 198 H (75-99) mg/dL Assessment and Plan Assessment: Worsening dyspnea with acute hypoxia over the last 3-4 months, Secondary erythrocytosis, mostly due to his ongoing hypoxia right lower lobe 7 mm lung nodules Hyperlipidemia Obesity with BMI of 37.1 Plan: A pleasant 39 years old male who presents with bilateral groundglass opacities with hypoxia Continue with oxygen therapy Pulmonary consult f/u a TSHand procalcitonin Patent recommended to repeat CAT scan of the chest in 3 months for his lung nodule Labs and medication were reviewed.. Continue same treatment. Continue with symptomatic treatment. Resume home medication. Monitor lytes and vitals. DVT and GI prophylaxis. Further recommendations depends on the clinical course of the patient DVT prophylaxis: Subcutaneous heparin GI Prophylaxis: Pepcid
[2021-12-06] MEDS: ATORVASTATIN 10 MG TAB PO SCH (20:52)
[2021-12-06] MEDS: FAMOTIDINE 20 MG TAB PO SCH (20:52)
[2021-12-06 20:53] LABS: Glucose,Whole Blood 164 mg/dL (75-99)
[2021-12-07] MEDS: methylPREDNISolone SOD SUCCI 125 MG/2 ML VIAL IV SCH ×4 (05:50→23:59)
[2021-12-07 07:09] LABS: Glucose,Whole Blood 366 mg/dL (75-99)
[2021-12-07] MEDS: IPRATROPIUM-ALBUTEROL 3 ML NEB INHALATION SCH ×4 (07:29→19:29)
[2021-12-07] MEDS: HEPARIN SODIUM,PORCINE/PF 5,000 UNIT/0.5 ML SYRINGE SQ SCH ×2 (08:15→21:36)
[2021-12-07] MEDS: FAMOTIDINE 20 MG TAB PO SCH ×2 (08:15→21:36)
[2021-12-07 11:02] LABS: Glucose,Whole Blood 153 mg/dL (75-99)
--- NOTE | 2021-12-07 11:12 | P.PN ---
Subjective Progress Note Date: 12/07/21 Principal diagnosis: Pneumonitis/alveolitis of unclear etiology This is a 41-year-old white male with no previous significant past medical history. No previous history of asthma, no previous history of COPD, no previous history of pneumonia, no previous cardiac history, patient is known to have obesity and dyslipidemia. Since April of last year until now, patient had recurrent episodes of cough, shortness of breath, and on few occasions he was treated with antibiotics and steroids. Since September till now, patient has been complaining of dyspnea on exertion and associated with cough, cough is productive with clear phlegm. No fever no chills no hemoptysis no chest pain. Upon arrival to the ER, his O2 saturation on room air was 86%. His O2 saturation came up to 94% on [address] of the chest was done to rule out pulmonary embolism, however it showed diffuse groundglass opacities. Has a mosaicperfusion pattern, and there was no evidence of thromboembolic disease. There was also evidence of 7 mm nodule in the right lower lobe superior segment, noncalcified. Again there was no evidence of pulmonary embolism. Considering the patient's O2 saturation, patient was admitted and this consult was initiated. I reviewed the CT angiogram of the chest, and I have recommended workup for hypersensitivity pneumonitis, and I have recommended sed rate, and angiotensin-converting enzyme level, I also recommended CAM And p-ANCA as well as a hypersensitivity panel. In the meantime patient will be treated with Solu- Medrol, and have a repeat chest x-ray in the next couple of days or even consider repeat CT of the chest and decide whether the patient will need bronchoscopy and transbronchial biopsy. The patient is seen today 12/06/2021 in follow-up on the regular medical floor. He is currently sitting up in bed. Awake and alert in no acute distress. He continues with a dry nonproductive cough. He is maintaining O2 saturations in the low 90s on 3 L/m per nasal cannula. He denies any worsening shortness of breath, cough or congestion. No fever or chills. He's been afebrile. Hemodynamically stable. Blood sugar 143. Hypersensitivity panel and other labs are still pending. Chest x-ray from last evening revealed no acute process. He is continued on DuoNeb inhalations, IV Solu-Medrol, heparin for DVT prophylaxis. Pepcid for GI prophylaxis. The patient is seen today 12/07/2021 in follow-up on the regular medical floor. He is currently sitting up in bed. Awake and alert in no acute distress. He slept well. No significant events overnight. Continues with a dry nonproductive cough. Some dyspnea on exertion. Still maintaining O2 saturation in low 90s on 2 L/m per nasal cannula. He's been afebrile. Hemodynamically stable. Blood glucose 153. He is continued on DuoNeb inhalations, IV Solu- Medrol, heparin for DVT prophylaxis. Pro-calcitonin 0.04. TSH 0.33. T4 1.53. c-ANCA less than 1:20, p-ANCA less than 1:20, ALEJANDRO level 41 ESR 8. Objective - Vital Signs Vital signs: Vital Signs Temp 97.6 F 12/07/21 08:51 Pulse 86 12/07/21 08:51 Resp 16 12/07/21 02:00 BP 142/77 12/07/21 08:51 Pulse Ox 92 L 12/07/21 08:51 Intake & Output 12/06/21 12/07/21 12/07/21 18:59 06:59 18:59 Intake Total 1080 Balance 1080 Intake: Oral 1080 Other: Voiding Method Toilet Toilet # Voids 2 - Exam GENERAL EXAM: Alert, very pleasant, male patient on 2 L nasal cannula, comfortable in no apparent distress. HEAD: Normocephalic. EYES: Normal reaction of pupils, equal size. NOSE: Clear with pink turbinates. THROAT: No erythema or exudates. NECK: No masses, no JVD. CHEST: No chest wall deformity. LUNGS: Equal air entry with no crackles, wheeze, rhonchi or dullness. CVS: S1 and S2 normal with no audible murmur, regular rhythm. ABDOMEN: No hepatosplenomegaly, normal bowel sounds, no guarding or rigidity. SPINE: No scoliosis or deformity SKIN: No rashes CENTRAL NERVOUS SYSTEM: No focal deficits, tone is normal in all 4 extremities. EXTREMITIES: There is no peripheral edema. No clubbing, no cyanosis. Peripheral pulses are intact. - Labs CBC & Chem 7: 12/06/21 05:51 12/06/21 05:51 Labs: Abnormal Lab Results - Last 24 Hours (Table) 12/06/21 12/06/21 12/06/21 Range/Units 11:26 15:12 16:38 POC Glucose (mg/dL) 133 H 198 H (75-99) mg/dL TSH 0.331 L (0.350-5.500) uIU/mL 12/06/21 12/07/21 Range/Units 20:51 07:07 POC Glucose (mg/dL) 164 H 366 H (75-99) mg/dL TSH (0.350-5.500) uIU/mL Assessment and Plan Assessment: 1 acute hypoxemic respiratory failure secondary to diffuse pneumonitis, not appreciated on the chest x-ray as much as appreciated on the CT of the chest. The patient is a nonsmoker. Denied any vaping history. Denies any chemical or allergen exposures that he can recall. He has had a humidifier near his bed each night since June 2021. May consider 'humidifier lung' within the differential however the patient has not had typical fevers. Pro calcitonin, p- ANCA, c-ANCA, ESR, ALEJANDRO levels all within normal limits 2 Possible hypersensitivity pneumonitis 3 Dyspnea on exertion secondary to above 4 Morbid obesity with BMI of 37.1 5 Right lower lobe nodule will need further follow-up and repeat CT of the chest in 6 months on outpatient basis 6 Hyperlipidemia Plan: Patient was seen and evaluated Labs reviewed Continues to require oxygen at 2 L nasal cannula Titrate the FiO2 as tolerated Continue IV Solu-Medrol Plan is for high-resolution computed tomography scan of the chest on 12/10/2019 We will continue to follow I have personally seen and examined the patient, performed the documentation and the assessment and plan as written. Number of minutes spent on the visit: 10.
[2021-12-07 16:59] LABS: Glucose,Whole Blood 156 mg/dL (75-99)
--- NOTE | 2021-12-07 20:08 | P.PN ---
Subjective This is a pleasant 41 years old male with past medical history of hyperlipidemia and obesity. Presents with ongoing dyspnea since end of last August for the last 3-4 months, mainly with exertion like when he is going upstairs associated with some cough and clear phlegm which is worse over the last month and hypoxia with saturation of oxygen was 86% on room air on admission, currently 94% on 4 L oxygen. He follows up with the [place] [facility] and they ordered some tests for him which came back basically negative as per patient and he was scheduled for pulmonary function test but he decided to come to emergency room. Past chest pain or abdominal pain or vomiting. No urinary complaints, no headache, dizziness or weakness or numbness. He denies smoking or illicit drugs. He drinks alcohol socially. He is mildly tachypneic 20-22 breaths per minute. Labs including CBC, BMP and liver enzymes were unremarkable. Hemoglobin is elevated at 17.7 D-dimer is negative less than 0.17. Troponin is negative less than 0.012. Coronavirus and influenza virus is negative and not detected. CTA of the chest with contrast: No pulmonary embolism, no lymphadenopathy. But has extensive bilateral groundglass opacities with hormone psych perfusion pattern with right lower lobe 7 mm lung nodules with recommendation for follow- up computed tomography scan in 3 months 12/06/2021 Patient breathing is improving. His oxygen requirement down to 3 L/m, is fully awake comfortable and pleasant and satisfied with the progress he is making. No new complaint. 80s, p-ANCA and cANCA are all negative. ProBNP is negative. Port auscultatory, TSH, hypersensitivity panel are all pending. Patient remains on Solu-Medrol 40 mg 12/07/2021 Patient breathing pattern is improving gradually and slowly, today he is in 2-2-1/2 L/m The patient continued on IV Solu-Medrol TSH is low but T4 is normal. Bothcalcitonin is negative at 0.04 Patient is planned for high-resolution CT of the chest on 12/09/2021 Objective - Vital Signs Vital signs: Vital Signs Temp 97.6 F 12/07/21 08:51 Pulse 98 12/07/21 11:23 Resp 16 12/07/21 02:00 BP 142/77 12/07/21 08:51 Pulse Ox 92 L 12/07/21 08:51 Intake & Output 03/12/07/21 12/07/21 18:59 06:59 18:59 Intake Total 1080 Balance 1080 Intake: Oral 1080 Other: Voiding Method Toilet Toilet # Voids 2 - Exam GENERAL: The patient is alert and oriented x3, not in any acute distress. Well developed, well nourished. HEENT: Pupils are round and equally reacting to light. EOMI. No scleral icterus. No conjunctival pallor. Normocephalic, atraumatic. No pharyngeal erythema. No thyromegaly. CARDIOVASCULAR: S1 and S2 present. No murmurs, rubs, or gallops. PULMONARY: Chest is clear to auscultation, no wheezing or crackles. ABDOMEN: Soft, nontender, nondistended, normoactive bowel sounds. No palpable organomegaly. MUSCULOSKELETAL: No joint swelling or deformity. EXTREMITIES: No cyanosis, clubbing, or pedal edema. NEUROLOGICAL: Gross neurological examination did not reveal any focal deficits. SKIN: No rashes. no petechiae. - Labs CBC & Chem 7: 12/06/21 05:51 12/06/21 05:51 Labs: Abnormal Lab Results - Last 24 Hours (Table) 12/06/21 12/06/21 12/06/21 Range/Units 15:12 16:38 20:51 POC Glucose (mg/dL) 198 H 164 H (75-99) mg/dL TSH 0.331 L (0.350-5.500) uIU/mL 12/07/21 12/07/21 Range/Units 07:07 11:00 POC Glucose (mg/dL) 366 H 153 H (75-99) mg/dL TSH (0.350-5.500) uIU/mL Assessment and Plan Assessment: Worsening dyspnea with acute hypoxia over the last 3-4 months, Secondary erythrocytosis, mostly due to his ongoing hypoxia right lower lobe 7 mm lung nodules Hyperlipidemia Obesity with BMI of 37.1 Plan: A pleasant 39 years old male who presents with bilateral groundglass opacities with hypoxia Continue with oxygen therapy Pulmonary consult Patent recommended to repeat CAT scan of the chest in 3 months for his lung nodule Labs and medication were reviewed.. Continue same treatment. Continue with symptomatic treatment. Resume home medication. Monitor lytes and vitals. DVT and GI prophylaxis. Further recommendations depends on the clinical course of the patient DVT prophylaxis: Subcutaneous heparin GI Prophylaxis: Pepcid
[2021-12-07 20:15] LABS: Glucose,Whole Blood 200 mg/dL (75-99)
[2021-12-07] MEDS: ATORVASTATIN 10 MG TAB PO SCH (21:36)
[2021-12-08] MEDS: methylPREDNISolone SOD SUCCI 125 MG/2 ML VIAL IV SCH ×4 (05:20→23:29)
[2021-12-08 07:12] LABS: Glucose,Whole Blood 136 mg/dL (75-99)
[2021-12-08] MEDS: FAMOTIDINE 20 MG TAB PO SCH ×2 (07:21→20:24)
[2021-12-08] MEDS: HEPARIN SODIUM,PORCINE/PF 5,000 UNIT/0.5 ML SYRINGE SQ SCH ×2 (07:21→20:24)
[2021-12-08] MEDS: IPRATROPIUM-ALBUTEROL 3 ML NEB INHALATION SCH ×4 (08:46→20:06)
[2021-12-08 11:44] LABS: Glucose,Whole Blood 154 mg/dL (75-99)
--- NOTE | 2021-12-08 13:05 | P.PN ---
Subjective Progress Note Date: 12/08/21 Principal diagnosis: Acute pneumonitis/alveolitis This is a 41-year-old white male with no previous significant past medical history. No previous history of asthma, no previous history of COPD, no previous history of pneumonia, no previous cardiac history, patient is known to have obesity and dyslipidemia. Since April of last year until now, patient had recurrent episodes of cough, shortness of breath, and on few occasions he was treated with antibiotics and steroids. Since September till now, patient has been complaining of dyspnea on exertion and associated with cough, cough is productive with clear phlegm. No fever no chills no hemoptysis no chest pain. Upon arrival to the ER, his O2 saturation on room air was 86%. His O2 saturation came up to 94% on [address] of the chest was done to rule out pulmonary embolism, however it showed diffuse groundglass opacities. Has a mosaicperfusion pattern, and there was no evidence of thromboembolic disease. There was also evidence of 7 mm nodule in the right lower lobe superior segment, noncalcified. Again there was no evidence of pulmonary embolism. Considering the patient's O2 saturation, patient was admitted and this consult was initiated. I reviewed the CT angiogram of the chest, and I have recommended workup for hypersensitivity pneumonitis, and I have recommended sed rate, and angiotensin-converting enzyme level, I also recommended CAM And p-ANCA as well as a hypersensitivity panel. In the meantime patient will be treated with Solu- Medrol, and have a repeat chest x-ray in the next couple of days or even consider repeat CT of the chest and decide whether the patient will need bronchoscopy and transbronchial biopsy. The patient is seen today 12/06/2021 in follow-up on the regular medical floor. He is currently sitting up in bed. Awake and alert in no acute distress. He continues with a dry nonproductive cough. He is maintaining O2 saturations in the low 90s on 3 L/m per nasal cannula. He denies any worsening shortness of breath, cough or congestion. No fever or chills. He's been afebrile. Hemodynamically stable. Blood sugar 143. Hypersensitivity panel and other labs are still pending. Chest x-ray from last evening revealed no acute process. He is continued on DuoNeb inhalations, IV Solu-Medrol, heparin for DVT prophylaxis. Pepcid for GI prophylaxis. The patient is seen today 12/07/2021 in follow-up on the regular medical floor. He is currently sitting up in bed. Awake and alert in no acute distress. He slept well. No significant events overnight. Continues with a dry nonproductive cough. Some dyspnea on exertion. Still maintaining O2 saturation in low 90s on 2 L/m per nasal cannula. He's been afebrile. Hemodynamically stable. Blood glucose 153. He is continued on DuoNeb inhalations, IV Solu- Medrol, heparin for DVT prophylaxis. Pro-calcitonin 0.04. TSH 0.33. T4 1.53. c-ANCA less than 1:20, p-ANCA less than 1:20, ALEJANDRO level 41 ESR 8. Reevaluated today on 12/08 patient is feeling much better, breathing a lot easier, nonetheless he remains on 2 L nasal cannula, O2 sats is 96%. Patient denies any cough no wheezing no shortness of breath no fever no chills, hence I plan to repeat his high-resolution CT of the chest in a.m., and if improving and not getting any worse, patient could be considered for discharge home and follow up on outpatient basis. Nonetheless he will need to be on a course of prednisone possibly tapered over the next 21 days. However in the CT of the chest continues to show abnormality, patient may have to be considered for transbronchial biopsy before any discharge planning Objective - Vital Signs Vital signs: Vital Signs Temp 97.7 F 12/08/21 08:00 Pulse 83 12/08/21 12:05 Resp 16 12/08/21 08:00 BP 114/74 12/08/21 08:00 Pulse Ox 96 12/08/21 08:48 Intake & Output 12/07/21 12/08/21 12/08/21 18:59 06:59 18:59 Intake Total 500 Balance 500 Intake: Oral 500 Other: Voiding Method Toilet # Voids 1 1 1 - Exam Physical Exam: Revealed 41-year-old white male pleasant, in no distress. Presently on 2 L nasal cannula, O2 sats is 96% Head: Atraumatic, normocephalic. HEENT:[Neck is supple.] [No neck masses.] [No thyromegaly.] [No JVD.] Chest: [Clear throughout, no crackles, no rhonchi, no wheezes.] Symmetrical chest expansion. Cardiac Exam: [Normal S1 and S2, no S3 gallop, no murmur.] Abdomen: [Soft, nontender, no megaly, no rebound, no guarding, normal bowel sounds.] Extremities: [No clubbing, no edema, no cyanosis.] Neurological Exam: [No focal neurologic deficit.] Alert oriented 3. Psychiatric: Normal mood, affect and normal mental status examination. Skin: No rashes. - Labs CBC & Chem 7: 12/06/21 05:51 12/06/21 05:51 Labs: Abnormal Lab Results - Last 24 Hours (Table) 12/07/21 12/07/21 12/08/21 Range/Units 16:58 20:14 07:10 POC Glucose (mg/dL) 156 H 200 H 136 H (75-99) mg/dL 12/08/21 Range/Units 11:43 POC Glucose (mg/dL) 154 H (75-99) mg/dL Assessment and Plan Assessment: Impression: Diffuse pneumonitis, not appreciated on the chest x-ray as much as appreciated on the CT of the chest. Possible hypersensitivity pneumonitis Shortness of breath on exertion secondary to above Morbid obesity with BMI of 37.1 Right lower lobe nodule will need further follow-up and repeat CT of the chest in 6 months on outpatient basis. Recommendation: Continue present meds including methylprednisolone Continue updrafts Continue oxygen and titrate accordingly Repeat CT of the chest without contrast/high-resolution, and make a decision whether the patient needs to be discharged home on prednisone or possibly transbronchial biopsy for definitive diagnosis. We'll continue to follow Time with Patient: Less than 30
[2021-12-08 16:34] LABS: Glucose,Whole Blood 152 mg/dL (75-99)
--- NOTE | 2021-12-08 17:16 | P.PN ---
Subjective This is a pleasant 41 years old male with past medical history of hyperlipidemia and obesity. Presents with ongoing dyspnea since end of last August for the last 3-4 months, mainly with exertion like when he is going upstairs associated with some cough and clear phlegm which is worse over the last month and hypoxia with saturation of oxygen was 86% on room air on admission, currently 94% on 4 L oxygen. He follows up with the [place] [facility] and they ordered some tests for him which came back basically negative as per patient and he was scheduled for pulmonary function test but he decided to come to emergency room. Past chest pain or abdominal pain or vomiting. No urinary complaints, no headache, dizziness or weakness or numbness. He denies smoking or illicit drugs. He drinks alcohol socially. He is mildly tachypneic 20-22 breaths per minute. Labs including CBC, BMP and liver enzymes were unremarkable. Hemoglobin is elevated at 17.7 D-dimer is negative less than 0.17. Troponin is negative less than 0.012. Coronavirus and influenza virus is negative and not detected. CTA of the chest with contrast: No pulmonary embolism, no lymphadenopathy. But has extensive bilateral groundglass opacities with hormone psych perfusion pattern with right lower lobe 7 mm lung nodules with recommendation for follow- up computed tomography scan in 3 months 12/06/2021 Patient breathing is improving. His oxygen requirement down to 3 L/m, is fully awake comfortable and pleasant and satisfied with the progress he is making. No new complaint. 80s, p-ANCA and cANCA are all negative. ProBNP is negative. Port auscultatory, TSH, hypersensitivity panel are all pending. Patient remains on Solu-Medrol 40 mg 12/07/2021 Patient breathing pattern is improving gradually and slowly, today he is in 2-2-1/2 L/m The patient continued on IV Solu-Medrol TSH is low but T4 is normal. Bothcalcitonin is negative at 0.04 Patient is planned for high-resolution CT of the chest on 12/09/2021 12/08/2021 Patient breathing continued to improve, he is on 2 L with saturation 97% All workup was negative so. Pending high-resolution CT of the chest without contrast Remains on Solu-Medrol Possible discharge in 24-48 hours if he keeps improvement and cleared by pulmonary service Objective - Vital Signs Vital signs: Vital Signs Temp 97.7 F 12/08/21 08:00 Pulse 83 12/08/21 12:05 Resp 16 12/08/21 08:00 BP 114/74 12/08/21 08:00 Pulse Ox 96 12/08/21 08:48 Intake & Output 12/07/21 12/08/21 12/08/21 18:59 06:59 18:59 Intake Total 500 Balance 500 Intake: Oral 500 Other: Voiding Method Toilet # Voids 1 1 1 - Exam GENERAL: The patient is alert and oriented x3, not in any acute distress. Well developed, well nourished. HEENT: Pupils are round and equally reacting to light. EOMI. No scleral icterus. No conjunctival pallor. Normocephalic, atraumatic. No pharyngeal erythema. No thyromegaly. CARDIOVASCULAR: S1 and S2 present. No murmurs, rubs, or gallops. PULMONARY: Chest is clear to auscultation, no wheezing or crackles. ABDOMEN: Soft, nontender, nondistended, normoactive bowel sounds. No palpable organomegaly. MUSCULOSKELETAL: No joint swelling or deformity. EXTREMITIES: No cyanosis, clubbing, or pedal edema. NEUROLOGICAL: Gross neurological examination did not reveal any focal deficits. SKIN: No rashes. no petechiae. - Labs CBC & Chem 7: 12/06/21 05:51 12/06/21 05:51 Labs: Abnormal Lab Results - Last 24 Hours (Table) 12/07/21 12/07/21 12/08/21 Range/Units 16:58 20:14 07:10 POC Glucose (mg/dL) 156 H 200 H 136 H (75-99) mg/dL 12/08/21 Range/Units 11:43 POC Glucose (mg/dL) 154 H (75-99) mg/dL Assessment and Plan Assessment: Worsening dyspnea with acute hypoxia over the last 3-4 months, Secondary erythrocytosis, mostly due to his ongoing hypoxia right lower lobe 7 mm lung nodules Hyperlipidemia Obesity with BMI of 37.1 Plan: A pleasant 39 years old male who presents with bilateral groundglass opacities with hypoxia Continue with oxygen therapy Pulmonary consult Patent recommended to repeat CAT scan of the chest in 3 months for his lung nodule Labs and medication were reviewed.. Continue same treatment. Continue with symptomatic treatment. Resume home medication. Monitor lytes and vitals. DVT and GI prophylaxis. Further recommendations depends on the clinical course of the patient DVT prophylaxis: Subcutaneous heparin GI Prophylaxis: Pepcid
[2021-12-08] MEDS: ATORVASTATIN 10 MG TAB PO SCH (20:24)
[2021-12-08 20:29] LABS: Glucose,Whole Blood 211 mg/dL (75-99)
[2021-12-09] MEDS: methylPREDNISolone SOD SUCCI 125 MG/2 ML VIAL IV SCH (05:16)
[2021-12-09 06:44] LABS: Glucose,Whole Blood 128 mg/dL (75-99)
[2021-12-09 08:14] VITALS: BP 138/74; RESP 18; TEMP 97.8
[2021-12-09] MEDS: HEPARIN SODIUM,PORCINE/PF 5,000 UNIT/0.5 ML SYRINGE SQ SCH (08:14)
[2021-12-09] MEDS: FAMOTIDINE 20 MG TAB PO SCH (08:14)
[2021-12-09] MEDS ORDERED: predniSONE 10 MG TAB PO STA (08:34)
[2021-12-09] MEDS: IPRATROPIUM-ALBUTEROL 3 ML NEB INHALATION SCH ×2 (08:47→11:54)
--- NOTE | 2021-12-09 09:27 | CT ---
EXAMINATION TYPE: CT chest wo con DATE OF EXAM: 12/09/2021 INDICATION: Pneumonitis. CT DLP: 798.7 mGy.cm Automated Exposure Control for Dose Reduction was Utilized. TECHNIQUE AND CONTRAST: CT scan of the chest without IV contrast administration. COMPARISON: CT dated 12/05/2021 FINDINGS: Persistent diffuse mild bilateral pulmonary groundglass opacities and mosaic perfusion pattern, relat ively sparing the lung bases. No area of pulmonary consolidation, reticulations, fibrotic changes, br onchiectasis or honeycombing. Stable 7 mm nodule in the right lower lobe (image #[id number], series 204), for follow-up CT scan in 3 months. Patent central airways. No gross cardiomegaly. No pleural or pericardial effusion. Minimal arterial atherosclerotic calcifica tion. The pulmonary trunk measures 2.8 cm. No pathologically enlarged lymph nodes in the chest. Unrem arkable upper abdomen. No aggressive bone lesion. IMPRESSION: Persistent nonspecific bilateral pulmonary groundglass opacities with mosaic perfusion pattern as ludwig cribed above, nonspecific. No evidence of acute lung infection or chad pneumonia. The pulmonary changes could be related to chronic small airway disease or occlusive vascular disease like chronic thromboembolic pulmonary hypertension. Other lung disease like hypersensitivity pneumoni tis cannot be excluded. Recommend clinical correlation and further workup. Further pulmonology consul tation can be considered if not already performed. Another follow-up CT scan in 3 months can be consi dered for reassessment.
[2021-12-09 11:15] LABS: Glucose,Whole Blood 135 mg/dL (75-99)
--- NOTE | 2021-12-09 11:36 | P.PN ---
Subjective Progress Note Date: 12/09/21 Principal diagnosis: Pneumonitis/alveolitis of unclear etiology This is a 41-year-old white male with no previous significant past medical history. No previous history of asthma, no previous history of COPD, no previous history of pneumonia, no previous cardiac history, patient is known to have obesity and dyslipidemia. Since April of last year until now, patient had recurrent episodes of cough, shortness of breath, and on few occasions he was treated with antibiotics and steroids. Since September till now, patient has been complaining of dyspnea on exertion and associated with cough, cough is productive with clear phlegm. No fever no chills no hemoptysis no chest pain. Upon arrival to the ER, his O2 saturation on room air was 86%. His O2 saturation came up to 94% on [address] of the chest was done to rule out pulmonary embolism, however it showed diffuse groundglass opacities. Has a mosaicperfusion pattern, and there was no evidence of thromboembolic disease. There was also evidence of 7 mm nodule in the right lower lobe superior segment, noncalcified. Again there was no evidence of pulmonary embolism. Considering the patient's O2 saturation, patient was admitted and this consult was initiated. I reviewed the CT angiogram of the chest, and I have recommended workup for hypersensitivity pneumonitis, and I have recommended sed rate, and angiotensin-converting enzyme level, I also recommended CAM And p-ANCA as well as a hypersensitivity panel. In the meantime patient will be treated with Solu- Medrol, and have a repeat chest x-ray in the next couple of days or even consider repeat CT of the chest and decide whether the patient will need bronchoscopy and transbronchial biopsy. The patient is seen today 12/06/2021 in follow-up on the regular medical floor. He is currently sitting up in bed. Awake and alert in no acute distress. He continues with a dry nonproductive cough. He is maintaining O2 saturations in the low 90s on 3 L/m per nasal cannula. He denies any worsening shortness of breath, cough or congestion. No fever or chills. He's been afebrile. Hemodynamically stable. Blood sugar 143. Hypersensitivity panel and other labs are still pending. Chest x-ray from last evening revealed no acute process. He is continued on DuoNeb inhalations, IV Solu-Medrol, heparin for DVT prophylaxis. Pepcid for GI prophylaxis. The patient is seen today 12/07/2021 in follow-up on the regular medical floor. He is currently sitting up in bed. Awake and alert in no acute distress. He slept well. No significant events overnight. Continues with a dry nonproductive cough. Some dyspnea on exertion. Still maintaining O2 saturation in low 90s on 2 L/m per nasal cannula. He's been afebrile. Hemodynamically stable. Blood glucose 153. He is continued on DuoNeb inhalations, IV Solu- Medrol, heparin for DVT prophylaxis. Pro-calcitonin 0.04. TSH 0.33. T4 1.53. c-ANCA less than 1:20, p-ANCA less than 1:20, ALEJANDRO level 41 ESR 8. The patient is seen today 12/09/2021 in follow-up on the regular medical floor. He is awake and alert in no acute distress. Currently sitting up in a chair at the bedside. Denies any worsening shortness of breath, cough or congestion. Maintaining O2 saturations in the 90s on room air. High-resolution computed tomography scan of the chest revealed persistent nonspecific bilateral pulmonary glass opacities with mosaic perfusion pattern. No evidence of acute lung infection or chad pneumonia. Blood glucose 135. He is continued on DuoNeb inhalations, IV Solu-Medrol. Heparin for DVT prophylaxis. Objective - Vital Signs Vital signs: Vital Signs Temp 97.8 F 12/09/21 07:02 Pulse 76 12/09/21 09:00 Resp 18 12/09/21 07:02 BP 138/74 12/09/21 07:02 Pulse Ox 95 12/09/21 08:48 Intake & Output 12/08/21 12/09/21 12/09/21 18:59 06:59 18:59 Intake Total 222 Output Total 0 Balance 222 Intake: Oral 222 Output: Urine 0 Other: Voiding Method Toilet # Voids 1 # Bowel Movements 1 - Exam GENERAL EXAM: Alert, very pleasant, male patient on room air, comfortable in no apparent distress. HEAD: Normocephalic. EYES: Normal reaction of pupils, equal size. NOSE: Clear with pink turbinates. THROAT: No erythema or exudates. NECK: No masses, no JVD. CHEST: No chest wall deformity. LUNGS: Equal air entry with no crackles, wheeze, rhonchi or dullness. CVS: S1 and S2 normal with no audible murmur, regular rhythm. ABDOMEN: No hepatosplenomegaly, normal bowel sounds, no guarding or rigidity. SPINE: No scoliosis or deformity SKIN: No rashes CENTRAL NERVOUS SYSTEM: No focal deficits, tone is normal in all 4 extremities. EXTREMITIES: There is no peripheral edema. No clubbing, no cyanosis. Peripheral pulses are intact. - Labs CBC & Chem 7: 12/06/21 05:51 12/06/21 05:51 Labs: Abnormal Lab Results - Last 24 Hours (Table) 12/08/21 12/08/21 12/08/21 Range/Units 11:43 16:32 20:28 POC Glucose (mg/dL) 154 H 152 H 211 H (75-99) mg/dL 12/09/21 12/09/21 Range/Units 06:42 11:08 POC Glucose (mg/dL) 128 H 135 H (75-99) mg/dL Assessment and Plan Assessment: 1 Acute hypoxemic respiratory failure secondary to diffuse pneumonitis, not appreciated on the chest x-ray as much as appreciated on the CT of the chest. The patient is a nonsmoker. Denied any vaping history. Denies any chemical or allergen exposures that he can recall. He has had a humidifier near his bed e ach night since June 2021. May consider 'humidifier lung' within the differential however the patient has not had typical fevers. Pro calcitonin, p- ANCA, c-ANCA, ESR, ALEJANDRO levels all within normal limits. High-resolution CAT scan today revealed similar findings suggesting hypersensitivity pneumonitis versus chronic small airway disease. Follow-up computed tomography scan recommended in 3 months 2 Possible hypersensitivity pneumonitis 3 Dyspnea on exertion secondary to above 4 Morbid obesity with BMI of 37.1 5 Right lower lobe nodule will need further follow-up and repeat CT of the chest in 6 months on outpatient basis 6 Hyperlipidemia Plan: Patient was seen and evaluated High-resolution computed tomography scan reviewed Stable and cleared for discharge Continue with steroids in the form of prednisone 30 mg daily Follow up with Dr. Edmondson in our office in 1-2 weeks' I have personally seen and examined the patient, performed the documentation and the assessment and plan as written. Number of minutes spent on the visit: 10.
[2021-12-09 12:04] VITALS: PULSE 74
--- NOTE | 2021-12-09 21:39 | P.DS ---
Providers Date of admission: 12/05/21 11:36 Attending physician: Ankur Wan MD Consults: 12/05/21 11:37 Consult Physician Urgent Consulting Provider: Margie Edmondson Consult Reason/Comments: hypoxic resp failure Do you want consulting provider notified?: Yes Primary care physician: [facility] Hospital Course: Diagnoses: -Worsening dyspnea with acute hypoxia over the last 3-4 months,High-resolution CAT scan today revealed similar findings suggesting hypersensitivity pneumonitis versus chronic small airway disease. Follow-up computed tomography scan recommended in 3 months -Secondary erythrocytosis, mostly due to his ongoing hypoxia -right lower lobe 7 mm lung nodules -Hyperlipidemia -Obesity with BMI of 37.1 Hospital course: This is a pleasant 41 years old male with past medical history of hyperlipidemia presents because of dyspnea for the last 3-4 months slightly getting worse. He is been evaluated by thermometer maker and underwent extensive workup which was basically negative. High-resolution CAT scan today revealed similar findings suggesting hypersensitivity pneumonitis versus chronic small airway disease. Follow-up computed tomography scan recommended in 3 months, patient informed with these findings went further recommendation for repeat CAT scan in 3 months and he agrees. Patient is on room air and he does not need oxygen upon discharge [employer] recommended patient discharged on 30 mg daily and to follow up with his thermometer maker Dr. Montes in the office to start to taper, and appointment made for him on 12/18 at 3:15 p.m. I talked to the patient and tell him about this date and time and he agrees with it and told me he will follow- up, I informed him he should not stop taking prednisone abruptly for possible side effects for example hypertension and decreased he should follow-up with Dr. Montes to taper his steroids and he verbalized understanding and acceptance. Prescription for enough coverage of prednisone iS provided for him upon discharge and sent to her pharmacy upon his request Other than that he is asymptomatic today Was cleared for discharge by pulmonary team Problems and management plan were discussed with the patient and he verbalized understanding and acceptance Patient was found stable and can be discharged home however he needs follow-up as an outpatient. Patient was instructed to follow up with PCP in the [place] clinic within one week and patient agrees Patient also was instructed to follow up with Dr. Montes on 12/18 at 3 PM and he agrees Physical exam Gen: patient is a AAOx3, no distress CVS: S1-S2, RRR, no murmur Lungs: B/L CTA, no wheezing Abdomen: soft, no distention, no tenderness, positive bowel sounds Extremity: no leg edema or induration Time spent more than 35 minutes Patient Condition at Discharge: Stable Plan - Discharge Summary Discharge Rx Participant: No New Discharge Prescriptions: New predniSONE 30 mg PO DAILY #42 tab Acetaminophen Tab [Tylenol] 650 mg PO Q6HR PRN tab PRN Reason: Fever And/ Or Pain Famotidine [Pepcid] 20 mg PO BID #60 tab Albuterol Inhaler [Ventolin Hfa Inhaler] 1 puff INHALATION RT-TID PRN #8 gm PRN Reason: Shortness Of Breath Continue Atorvastatin Calcium [Lipitor] 10 mg PO HS Discharge Medication List Atorvastatin Calcium [Lipitor] 10 mg PO HS 05/09/20 [History] Acetaminophen Tab [Tylenol] 650 mg PO Q6HR PRN tab 12/09/21 [Rx] Albuterol Inhaler [Ventolin Hfa Inhaler] 1 puff INHALATION RT-TID PRN #8 gm 12/09/21 [Rx] Famotidine [Pepcid] 20 mg PO BID #60 tab 12/09/21 [Rx] predniSONE 30 mg PO DAILY #42 tab 12/09/21 [Rx] Follow up Appointment(s)/Referral(s): Margie Edmondson MD [STAFF PHYSICIAN] - 12/18/21 3:15 pm [facility],Clinic [Primary Care Provider] - 12/16/21 8:00 am Patient Instructions/Handouts: Hypoxia (ED), Acute Respiratory Failure (ED) Activity/Diet/Wound Care/Special Instructions: Low carbohydrate diet 1800 kcal per day Activity is restricted until you see your doctor Discharge Disposition: HOME SELF-CARE
== END 2021-12-09 13:31 | disposition home or self-care (01) | DRG 196 ==
LOC: EC 08:19 → 4SSUR 11:36
PROVIDERS: ADMIT Internal Medicine; ATTEND Internal Medicine
DX: J67.9 Hypersensitivity pneumonitis due to unspecified organic dust (principal); J96.01 Acute respiratory failure with hypoxia; E66.01 Morbid (severe) obesity due to excess calories; Z20.822 Contact with and (suspected) exposure to COVID-19; E78.5 Hyperlipidemia, unspecified; D75.1 Secondary polycythemia; Z68.37 Body mass index [BMI] 37.0-37.9, adult; G58.9 Mononeuropathy, unspecified; M17.0 Bilateral primary osteoarthritis of knee; R91.1 Solitary pulmonary nodule; Z79.899 Other long term (current) drug therapy; Z87.2 Personal history of diseases of the skin and subcutaneous tissue; Z98.890 Other specified postprocedural states; Z82.5 Family history of asthma and other chronic lower respiratory diseases; Z83.3 Family history of diabetes mellitus; Z82.49 Family history of ischemic heart disease and other diseases of the circulatory system; Z81.8 Family history of other mental and behavioral disorders; Z83.49 Family history of other endocrine, nutritional and metabolic diseases; Z81.2 Family history of tobacco abuse and dependence
CPT/HCPCS: 36415; 71045; 71250; 71275; 80048; 80053; 82164; 83605; 83735; 83880; 84145; 84439; 84443; 84484; 85025; 85379; 85610; 85652; 85730; 86001; 86255; 86606; 86609; 87502; 87635; 93005; 94640; 94760; 96374; 99285